=== PATIENT | male | born 1990 | race Caucasian/White ===

== ENCOUNTER 2024-03-21 09:11 | Emergency (ER) | payer OTHER, SELFPAY ==
[2024-03-21 09:19] VITALS: BP 130/82; PULSE 83; RESP 18; TEMP 37.2; O2SAT 98; BMI 24.1
--- NOTE | 2024-03-21 11:11 | ED_ITS ---
HPI - General Adult General Chief complaint: General Medical Stated complaint: Fever, body aches Time Seen by Provider: 03/21/24 10:58 Source: patient Mode of arrival: ambulatory Limitations: no limitations History of Present Illness ED Provider: Shital Rowell PA-C HPI narrative: 33 yo male with recently diagnosed COVID-19 presents to the ER for evaluation of fevers, body aches, and sore throat for the last 3 days. He tested positive for COVID at home. Reports generalized body aches, pounding headaches, nausea, sore throat, poor p.o. intake. He has had subjective fevers and chills. No diarrhea or vomiting. No abdominal pain, shortness of breath or difficulty breathing. MD complaint: fever, sore throat Onset (ago): day(s) (3) Location: head and mouth Radiation: non-radiation Severity: moderate Quality: aching Pain Consistency: constant Relieving factors: none Exacerbating factors: none Associated symptoms: cough, fever/chills, headaches, loss of appetite, malaise and nausea/vomiting Treatments prior to arrival: none Related Data Previous Rx's ?Medication ?Instructions ?Recorded cyclobenzaprine 10 mg tablet 10 mg PO TID PRN muscle spasm #14 02/15/20 tabs ibuprofen 600 mg tablet 600 mg PO Q6H PRN pain #30 tabs 02/15/20 lidocaine 4 % topical patch 1 patch topical DAILY PRN pain #10 02/15/20 ea amoxicillin 875 mg-potassium 1 tab PO BID #20 tabs 03/21/24 clavulanate 125 mg tablet Allergies Allergy/AdvReac Type Severity Reaction Status Date / Time No Known Allergies Allergy Verified 03/21/24 09:21 [No Known Allergies*] Review of Systems Review of Systems: Yes all other systems are reviewed and are negative PMFSH Past Medical History Medical History No active medical problems Social History Social History (Updated 02/15/20 @ 07:52 by Alaina Myers DO) Substance Use Type: Marijuana Advance Directives: No Advance Directives Information Provided: Yes Physical Exam ED Vital Signs: Vital Signs - 24 hr 03/21/24 09:19 03/21/24 11:28 Temperature 99.0 F 98.7 F Pulse Rate 83 71 Respiratory Rate 18 16 Blood Pressure 130/82 134/99 H Pulse Oximetry 98 100 Oxygen Delivery Method Room Air Room Air BMI result Body Mass Index 24.1 Appearance: Alert. Oriented X3. Appears ill Head: normocephalic, atraumatic. Eyes: Pupils equal, round and reactive to light. ENT: Pharynx with moderate posterior pharyngeal erythema without any tonsillar swelling or exudate, uvula midline. Normal voice. Handling secretions normally Neck: Normal inspection. Neck supple. CVS: Normal heart rate and rhythm. Pulses normal. Respiratory: No respiratory distress. Breath sounds normal. Abdomen: Soft and nontender. +BS x4 Skin: Skin warm and dry. Normal skin color. Normal skin turgor. No rashes. Extremities: No lower extremity edema. No joint swelling. Neuro/psych: Oriented X 3. Grossly normal, nonfocal Medications Administered Discontinued Medications Generic Name Dose Route Start Last Admin Trade Name Freq PRN Reason Stop Dose Admin Ondansetron HCl 4 mg 03/21/24 11:33 03/21/24 11:37 Ondansetron Odt 4 Mg Tab.Rapdis TRANSLINGU 03/21/24 11:34 4 mg ONCE ONE Administration Medical Decision Making Medical Decision Making [facility] Narrative: 33-year-old male presents to the ER for evaluation of 3 days of fevers, body aches, headaches, sore throat and general malaise. He tested positive for COVID yesterday. On arrival to the ER patient is hemodynamically stable, afebrile, saturating well on room air. He is nontoxic appearing. No evidence of peritonsillar abscess on examination, handling secretions normally. He was nauseous and dry heaving, sublingual Zofran given with good effect. Patient tested positive for strep throat today. Will prescribe 10 days of antibiotics. Patient counseled on difference between viral and bacterial illnesses as well as their treatments and supportive care. Stable for discharge home. Return precautions were discussed Differential Diagnosis Differential Diagnoses: The differential diagnosis associated with the presentation includes strep, covid, flu, rsv, other viral syndrome, bronchitis, pneumonia, no evidence of peritonsillar abcsess or retropharyngeal abscess Lab Data [facility] Lab Attestation statement: I reviewed the patient's lab results. Labs: Lab Results 03/21/24 Range/Units 10:53 S. pyogenes GrpA CAROLIN Positive A (Negative) Independent Historian Clinical information obtained from an independent historian. History obtained from or confirmed by: Spouse External Record Review External record reviewed: Prior outpatient labs Prescription Management I considered prescription management with: Pain Medication and Antibiotic Critical Care Time Critical Care Time Critical Care Time: No Discharge Plan Discharge Clinical Impression: COVID-19, Strep throat Patient Disposition: Home, Self-Care Instructions: Strep Throat (DC), COVID-19 (Coronavirus Disease 2019) (ED) Additional Instructions: You tested positive for Strep throat. Take the prescribed antibiotics as directed, complete the entire course and do not miss any doses Rest. Drink plenty of fluids. Do not go out in public while you are not feeling well. Take over the counter cold/flu medications as needed for your symptoms. Take Tylenol and/or Motrin as needed for fevers and body aches. If you develop new or worsening symptoms call 911 or come back to the ER for further evaluation. Prescriptions: New amoxicillin-pot clavulanate 875-125 mg tablet 1 tab PO BID Qty: 20 0RF No Action cyclobenzaprine 10 mg tablet 10 mg PO TID PRN (Reason: muscle spasm) Qty: 14 0RF lidocaine 4 % adhesive patch,medicated 1 patch topical DAILY PRN (Reason: pain) Qty: 10 0RF Rx Instructions: may leave on for up to 12 hrs ibuprofen 600 mg tablet 600 mg PO Q6H PRN (Reason: pain) Qty: 30 0RF Stand Alone Forms: Work/School Release Print Language: Kinyarwanda
[2024-03-21 11:19] LABS: IDNOW Serial# 58CA691E; Strep A Nucleic Acid Positive (Negative)
[2024-03-21 11:28] VITALS: BP 134/99; PULSE 71; RESP 16; TEMP 37.1; O2SAT 100
[2024-03-21] MEDS: Ondansetron ODT 4 MG TAB.RAPDIS TRANSLINGU (11:37)
[2024-03-21 12:22] VITALS: BP 134/99; PULSE 71; RESP 16; TEMP 37.1; O2SAT 100
== END 2024-03-21 12:55 | disposition home or self-care (01) ==
PROVIDERS: Physician Assistant; Emergency Provider Emergency Medicine
DX: U07.1 COVID-19 (principal); J02.0 Streptococcal pharyngitis; R50.9 Fever, unspecified; M79.10 Myalgia, unspecified site; R51.9 Headache, unspecified
CPT/HCPCS: 87651; 99283